=== PATIENT | male | born 1940 | race Caucasian/White ===

== ENCOUNTER → 2017-12-29 | Day surgery (SDC) | payer MEDICARE, OTHER ==
[~2017-12-29] MED LIST: AMLO5TAB22 PO; CHOL1CAP6 PO; CRES10TA PO; DEXAMETHASONE SOD PHOS 4 MG/ML VIAL ONE; EPINEPHrine HCL (1:1000) 1 MG/ML VIAL ONE; FERR65TA PO; FLURBIPROFEN 0.03% OPHT SOLN 2.5 ML BTL ONE; HYALURONIDASE/LIDOCAINE/BUPIVACAINE 5 ML SYR ONE; ICAPTAB PO; INDA2.5T3 PO; IRBE1TAB39 PO; KCL10C PO; LACTATED RINGER'S 1000 ML INJ 1,000 ML ONE; MIDAZOLAM HCL 2 MG/2 ML VIAL ONE; NEOMYCIN/POLYMYXIN/DEXAMETHASONE OPTH OINT 3.5 GM TUBE ONE; ONDANSETRON HCL 4 MG/2 ML VIAL IV PUSH ONE; PHENYLEPHRINE HCL 2.5 % OPTH SOLN 15 ML BTL ONE; PREV30CA36 PO; PROPOFOL 100 MG/10 ML INJ IV ONE; SODIUM CHLORIDE 0.9% INJ 10 ML ONE; TAB-TAB PO; TETRACAINE 0.5% OPTH SOLN 15 ML BTL ONE; TROPICAMIDE 1% OPHT SOLN 15 ML BTL ONE; TYLE500T PO; ceFAZolin INJ 1,000 MG VIAL ONE
--- NOTE | 2018-01-03 11:15 | MP ---
cc: Aryan Krishnan MD DATE OF OPERATION: 12/29/2017 PREOPERATIVE DIAGNOSIS: Dislocated intraocular lens implant, left eye. POSTOPERATIVE DIAGNOSIS: Dislocated intraocular lens implant, left eye. PROCEDURE PERFORMED: Pars plana vitrectomy and dislocated intraocular lens implant removal. ANESTHESIA: MAC. SURGEON: Aryan Krishnan MD COMPLICATIONS: None. DETAILS OF PROCEDURE: After the patient gave informed consent, he was anesthetized using retrobulbar anesthesia. He was then brought to the operating room and prepare and draped in the usual sterile fashion. A wire lid speculum was placed in the patient's left eye. A superior 180 degree conjunctival peritomy was then performed using 0.12 forceps and Albina scissors. Excellent hemostasis was obtained with the bipolar cautery. 23-gauge vitrectomy cannulas were then placed in the lower temporal, superotemporal and superonasal quadrants 3 mm posterior to the corneoscleral limbus. An infusion cannula was placed lower temporally. Superiorly a 6 mm corneoscleral shelled frown incision was made using a 64 blade, crescent knife and keratome. The vitrector was then used to remove the vitreous. The dislocated lens was grasped using intraocular forceps and maneuvered into the anterior chamber and removed. A superonasal peripheral iridectomy was performed using the vitreous cutter. Careful indirect ophthalmoscopy with scleral depression was then performed and no peripheral retinal breaks were noted. The corneal scleral incision was closed using three interrupted 10-0 nylon sutures. The two superior sclerotomy sites were closed using an interrupted 6-0 Vicryl suture. The infusion cannula was removed. The conjunctiva was re-apposed using two interrupted 7-0 Vicryl sutures. Subconjunctival injections of dexamethasone and Ancef were placed. An atropine drop, Maxitrol ointment and a patch and shield were then applied. The patient tolerated the procedure well. There were no complications. ADDENDUM: The patient has very high myopia and leaving him aphakic will just make him very mildly myopic and since an ACIOL was not made with a small enough power to accommodate him, we decided mutually to leave him slightly myopic. [facility]. MD LUIS Darling/KD , 10:34 AM , 11:14 AM
== END | disposition home or self-care (01) ==
LOC: ESDC 13:06
PROVIDERS: ATTEND Ophthalmology Retina Specialist
DX: H27.132 Posterior dislocation of lens, left eye (principal)
CPT/HCPCS: 00145; 00147; 66625; 67121; J0171; J0690; J1100; J2250; J2405; J3010; J7120